=== PATIENT | female | born 1960 | race Caucasian/White ===

== ENCOUNTER 2020-06-10 22:22 | Emergency (ER) | payer BC, OTHER ==
[~2020-06-10] VITALS: Ht 152.4 cm; Wt 65.8 kg
[2020-06-10] MEDS ORDERED: HYDROMORPHONE 1 MG/1 ML DISP.SYRIN ONE (22:37)
[2020-06-10] MEDS ORDERED: ONDANSETRON HCL/PF 4 MG/2 ML VIAL ONE (22:37)
--- NOTE | 2020-06-10 22:37 | NUR ---
PT AAOX4. BIBRA C/O CHRONIC PAIN. RA GAVE THE PT 100MCG FENTANYL. PT PLACED IN BED 10 ON MONITOR AND PULSE OX. VSS.
[2020-06-10 22:52] LABS: BASOPHILS % (AUTO) 0.5 % (0.0-2.0); EOSINOPHILS % (AUTO) 0.3 % (0.0-6.0); HEMATOCRIT 37 % (33-45); HEMOGLOBIN 12.2 g/dL (11.5-14.8); LYMPHOCYTES # (AUTO) 0.5 /CMM (0.8-4.8); MEAN CORPUSCULAR HGB CONC 33 g/dl (31.0-36.0); MEAN CORPUSCULAR VOLUME 85 fL (82-100); MONOCYTES # (AUTO) 0.5 /CMM (0.1-1.30); MONOCYTES % (AUTO) 6.7 % (2.0-12.0); NEUTROPHILS # (AUTO) 6.9 /CMM (1.8-8.9); NEUTROPHILS % (AUTO) 86.5 % (43.0-81.0); PLATELET COUNT (AUTO) 386 /CMM (150-450); RED BLOOD CELL COUNT(AUTO) 4.34 MIL/uL (4.0-5.2)
[2020-06-10] MEDS ORDERED: HYDROMORPHONE INJ 2 MG/ML DISP.SYRIN IV ONE (23:00)
[2020-06-10] MEDS ORDERED: IV NS 0.9% 500 ML BAG IV ONE (23:00)
[2020-06-10] MEDS ORDERED: ONDANSETRON HCL/PF 4 MG/2 ML VIAL IVP ONE (23:00)
[2020-06-10 23:12] LABS: CALCIUM, SERUM 10.2 mg/dL (8.5-10.1); CREATININE 1.2 mg/dL (0.6-1.3)
[2020-06-10] MEDS ORDERED: HYDROMORPHONE INJ 2 MG/ML DISP.SYRIN ONE (23:57)
[2020-06-10] MEDS ORDERED: LORAZEPAM INJ 2 MG/ML VIAL ONE (23:58)
[2020-06-11] MEDS ORDERED: HYDROMORPHONE INJ 2 MG/ML DISP.SYRIN IV ONE
[2020-06-11] MEDS ORDERED: LORAZEPAM INJ 2 MG/ML VIAL IV ONE
--- NOTE | 2020-06-11 02:51 | NUR ---
PT PULLED OUT IV BY ACCIDENT.
--- NOTE | 2020-06-11 03:12 | NUR ---
PT WOKE UP, C/O PAIN. ER MD AWARE. ORDERED 1MG DILAUDID IVP XNOW.
[2020-06-11] MEDS ORDERED: HYDROMORPHONE 1 MG/1 ML DISP.SYRIN ONE ×4 (03:14→12:10)
--- NOTE | 2020-06-11 03:24 | NUR ---
UNABLE TO START IV. MD AWARE. WILL ADMINISTER DILAUDID IM. MD AWARE.
[2020-06-11] MEDS ORDERED: HYDROMORPHONE 1 MG/1 ML DISP.SYRIN IV ONE ×3 (03:30→12:30)
--- NOTE | 2020-06-11 04:40 | NUR ---
PT RESTING COMFORTABLY. VSS.
--- NOTE | 2020-06-11 05:58 | NUR ---
SPOKE TO ER MD JOHN, STATED TO GIVE PT 1MG DILAUDID IM XNOW.
--- NOTE | 2020-06-11 06:00 | NUR ---
UPON DISCHARGING THE PT, STATED "I HAVE THE SAME PAIN THAT I HAD WHEN I FIRST CAME IN HERE." ER MD AWARE. ER MD AT BEDSIDE SPEAKING TO THE PT.
[2020-06-11] MEDS ORDERED: HYDROMORPHONE 1 MG/1 ML DISP.SYRIN IM ONE (06:30)
--- NOTE | 2020-06-11 07:30 | NUR ---
SPOKE WITH LAWRENCE FROM [facility] FOR [facility]HER LEVEL OF CARE TRANSFER. WANTS CLINICALS FAXED AND FACESHEET.
--- NOTE | 2020-06-11 07:38 | NUR ---
NOTED CHEMO PORT L UPPER EXT
--- NOTE | 2020-06-11 07:40 | NUR ---
CALLED AND SPOKE WITH LILI FROM [facility]. WANTS FACESHEET, CLINICALS, AND CT SCAN FAXED.
--- NOTE | 2020-06-11 07:47 | NUR ---
PATIENT SIGNED CONSENT FOR EMERGENCY BLOOD TRANSFUSION
--- NOTE | 2020-06-11 07:52 | NUR ---
FAXED CLINICALS TO BOTH [facility] AND [facility] TRAN[facility] FOR HIGHER LEVEL OF CARE.
[2020-06-11 08:05] LABS: BASOPHILS % (AUTO) 0.3 % (0.0-2.0); HEMATOCRIT 30 % (33-45); HEMOGLOBIN 9.8 g/dL (11.5-14.8); LYMPHOCYTES # (AUTO) 0.5 /CMM (0.8-4.8); MEAN CORPUSCULAR HGB CONC 33 g/dl (31.0-36.0); MEAN CORPUSCULAR VOLUME 86 fL (82-100); MONOCYTES # (AUTO) 0.5 /CMM (0.1-1.30); MONOCYTES % (AUTO) 2.8 % (2.0-12.0); NEUTROPHILS # (AUTO) 16.2 /CMM (1.8-8.9); NEUTROPHILS % (AUTO) 93.9 % (43.0-81.0); PLATELET COUNT (AUTO) 444 /CMM (150-450); RED BLOOD CELL COUNT(AUTO) 3.44 MIL/uL (4.0-5.2); WHITE BLOOD COUNT (AUTO) 17.3 K/uL (4.3-11.0)
--- NOTE | 2020-06-11 08:21 | NUR ---
VERIFIED BLOOD UNIT [id number] WITH BESSY PINEDA RN.
--- NOTE | 2020-06-11 08:23 | NUR ---
PRE BLOOD TRANSFUSION VITALS SIGNS TAKEN AND RECORDED.
--- NOTE | 2020-06-11 08:24 | NUR ---
VERIFIED 2ND UNIT OF PRBC *(UNIT#[id number]) O NEG WITH TRINA ROBERT RN.
[2020-06-11 08:25] LABS: ALBUMIN 3.1 g/dL (3.4-5.0); BILIRUBIN,DIRECT 0.1 mg/dL (0.0-0.2); BILIRUBIN,TOTAL 0.2 mg/dL (0.2-1.0); CALCIUM, SERUM 9.6 mg/dL (8.5-10.1); CREATININE 1.4 mg/dL (0.6-1.3); POTASSIUM 4.8 mmol/L (3.5-5.1); TOTAL PROTEIN, SERUM 7.3 g/dL (6.4-8.2)
--- NOTE | 2020-06-11 08:40 | NUR ---
BLOOD TRANSFUSION ONGOING. VITAL SIGNS TAKEN AND RECORDED. VSS. NO ADVERSE EFFECT NOTED. WILL CONTINUE TO MONITOR PATIENT CLOSELY.
--- NOTE | 2020-06-11 09:21 | NUR ---
APARTMENT COMMUNITY ASSISTANT MANAGER AT BEDSIDE FOR 2ND TYPE AND SCREEN
--- NOTE | 2020-06-11 09:45 | NUR ---
RECIEVED A CALL FROM [facility] FROM TRANSFER CENTER. PATIENT HAS BEEN ACCEPTED TO [facility], [place] ICU ROOM [id number]. [address] IS DR. JONES AND CONSTRUCTION E[employer]IPMENT MECHANIC DR. WEBSTER. GIVE REPORT TO [facility] 30 MINUTES PRIOR TO AMBULANCE ETA.
--- NOTE | 2020-06-11 09:54 | NUR ---
CALLED [facility] FOR TRANSPORT TO [facility]. ETA 1230. TRIP NUMBER [id number].
--- NOTE | 2020-06-11 10:00 | NUR ---
NUMBER FOR REPORT: [phone]
--- NOTE | 2020-06-11 11:21 | NUR ---
MD MADE AWARE OF BP. PATIENT ALSO C/O 8/10 ABDOMINAL PAIN. RECEIVED VERBAL ORDER OF 50MCG FENTANYL IVP. CARRIED OUT
[2020-06-11] MEDS ORDERED: FENTANYL PF 100MCG/2ML AMPUL ONE (11:22)
[2020-06-11] MEDS ORDERED: FENTANYL PF 100MCG/2ML AMPUL IV ONE (11:30)
[2020-06-11] MEDS ORDERED: ONDANSETRON HCL/PF 4 MG/2 ML VIAL ONE (11:51)
[2020-06-11 11:55] VITALS: BP 199/110
[2020-06-11] MEDS ORDERED: ONDANSETRON HCL/PF - ER 4 MG/2 ML VIAL IV ONE (12:00)
--- NOTE | 2020-06-11 12:10 | NUR ---
GAURI MONK MD IN COMMUNICATION WITH ACCEPTING MD OF [facility].
[2020-06-11 12:14] LABS: HEMOGLOBIN 12.7 g/dL (11.5-14.8)
--- NOTE | 2020-06-11 12:15 | NUR ---
PATIENT PICKE UP BY [facility] UNIT [id number] WITH [facility] RN FRANCISCO. PATIENT WILL BE TRANSFERRED TO [facility].
== END 2020-06-11 12:18 | disposition short-term general hospital (02) ==
LOC: ER 22:24
DX: R58 Hemorrhage, not elsewhere classified (principal); R00.0 Tachycardia, unspecified; D72.829 Elevated white blood cell count, unspecified; C49.9 Malignant neoplasm of connective and soft tissue, unspecified; Z20.822 Contact with and (suspected) exposure to COVID-19; C55 Malignant neoplasm of uterus, part unspecified; G89.4 Chronic pain syndrome; K44.9 Diaphragmatic hernia without obstruction or gangrene; K76.0 Fatty (change of) liver, not elsewhere classified; C78.00 Secondary malignant neoplasm of unspecified lung; R71.0 Precipitous drop in hematocrit; K57.30 Diverticulosis of large intestine without perforation or abscess without bleeding
CPT/HCPCS: 36415 ×2; 36430; 74176; 80048 ×2; 80076; 85025 ×2; 85027; 85730 ×2; 86850; 86922; 87426; 96372 ×2; 96374; 96375 ×2; 96376; 99291; 99292; C9803; J1170 ×6; J2060; J2405 ×2; J3010; J7040 ×3; P9016 ×2